=== PATIENT | male | born 1970 | race Caucasian/White ===

== ENCOUNTER 2023-09-22 06:05 | Day surgery (SDC) | payer OTHER ==
[2023-09-22] MEDS ORDERED: fentaNYL CITRATE 50 MCG/ML AMPUL IV PUSH ONE (10:45)
[2023-09-22] MEDS ORDERED: DIPHENHYDRAMINE HCL 50 MG/ML VIAL 1ML IV ONE (10:45)
[2023-09-22] MEDS ORDERED: MIDAZOLAM HCL 2 MG/2 ML VIAL IV ONE (10:45)
== END 2023-09-22 12:40 | disposition home or self-care (01) ==
LOC: AMB-ENDOS 06:05
PROVIDERS: ATTEND Colon & Rectal Surgery
DX: K63.5 Polyp of colon (principal); Z88.6 Allergy status to analgesic agent; Z88.0 Allergy status to penicillin